=== PATIENT | male | born 1955 | race African-American/Black ===

== ENCOUNTER 2021-07-11 18:43 | Emergency (ER) | payer BC ==
[~2021-07-11] VITALS: Ht 177.8 cm; Wt 86.0 kg
[2021-07-11 18:51] VITALS: BP 135/74
[2021-07-11] MEDS ORDERED: ACETAMINOPHEN 325MG TABLET PO ONE (20:45)
== END 2021-07-11 21:23 | disposition home or self-care (01) ==
LOC: ER 18:43
DX: R51.9 Headache, unspecified (principal); M79.18 Myalgia, other site; Z20.822 Contact with and (suspected) exposure to COVID-19; R50.9 Fever, unspecified; R03.0 Elevated blood-pressure reading, without diagnosis of hypertension; H40.9 Unspecified glaucoma; R53.83 Other fatigue
CPT/HCPCS: 87426; 99283